=== PATIENT | female | born 1995 | race Caucasian/White ===

== ENCOUNTER 2019-02-11 16:02 | Emergency (ER) | payer OTHER ==
[~2019-02-11] VITALS: Ht 160 cm; Wt 59.1 kg
[2019-02-11 16:12] VITALS: BP 116/86
[2019-02-11] MEDS ORDERED: ALBU8HFA IH (16:15)
[2019-02-11] MEDS ORDERED: IBUPROFEN 600 MG TABLET PO ONE (17:30)
== END 2019-02-11 17:41 | disposition left against medical advice (07) ==
LOC: EMS 16:05
DX: R07.89 Other chest pain (principal); D24.1 Benign neoplasm of right breast; D24.2 Benign neoplasm of left breast; F17.210 Nicotine dependence, cigarettes, uncomplicated; J45.909 Unspecified asthma, uncomplicated
CPT/HCPCS: 93005

== ENCOUNTER 2019-09-11 16:56 | Emergency (ER) | payer SELFPAY ==
[~2019-09-11] VITALS: Ht 160 cm; Wt 59.1 kg
[~2019-09-11 16:56] MED LIST: ALBU8HFA IH
[2019-09-11 17:04] VITALS: BP 130/83
== END 2019-09-11 18:29 | disposition left against medical advice (07) ==
LOC: EMS 16:56
DX: R07.9 Chest pain, unspecified (principal); Z53.21 Procedure and treatment not carried out due to patient leaving prior to being seen by health care provider

== ENCOUNTER 2021-07-23 20:45 | Emergency (ER) | payer SELFPAY ==
[~2021-07-23] VITALS: Ht 160 cm; Wt 72.7 kg
[2021-07-23] MEDS ORDERED: AMOX TR/POT CLAV 875 MG/125 MG TABLET PO ONE (23:15)
[2021-07-23] MEDS ORDERED: SODIUM CHLORIDE 0.9% 250 ML IRRIG SOLUTION BOTTLE IRRIG ONE (23:15)
[2021-07-23] MEDS ORDERED: HYDROCODONE/ACETAMINOPHEN 5-325 MG TABLET PO ONE (23:15)
[2021-07-23] MEDS ORDERED: PERTUSS(ACELL),DIPH,TET VAC/PF 0.5 ML SYRINGE IM. ONE (23:15)
[2021-07-24] MEDS ORDERED: LIDOCAINE 1% 10 ML VIAL ID ONE
[2021-07-24 01:43] VITALS: BP 133/78
== END 2021-07-24 00:30 | disposition left against medical advice (07) ==
LOC: EMS 20:47
DX: S01.551A Open bite of lip, initial encounter (principal); J45.909 Unspecified asthma, uncomplicated; F17.210 Nicotine dependence, cigarettes, uncomplicated; W54.0XXA Bitten by dog, initial encounter; Y93.89 Activity, other specified; Y92.89 Other specified places as the place of occurrence of the external cause; Y99.8 Other external cause status
CPT/HCPCS: 99281; Z7502